=== PATIENT | male | born 1995 | race Caucasian/White ===

== ENCOUNTER 2020-08-03 17:23 | Emergency (ER) | payer OTHER, SELFPAY ==
[2020-08-03] VITALS (12 sets, daily range): BP systolic 99–134; BP diastolic 51–69; PULSE 79–104; RESP 14–22; TEMP 36.6–36.7; O2SAT 98–100; BMI 19.2
--- NOTE | 2020-08-03 17:37 | DI.RAD.S_ITS ---
PROCEDURE: XR CHEST 2V INDICATIONS: Chest pain/SOB TECHNIQUE: 2 views of the chest were acquired. COMPARISON: None. FINDINGS: Surgical changes and devices: None. Lungs and pleura: Lungs are clear. No pleural effusions or pneumothorax. Mediastinum: Mediastinal contours are normal. Heart size is normal. Bones and chest wall: No suspicious bony abnormalities. Soft tissues appear unremarkable. IMPRESSION: No acute cardiopulmonary disease process. Dictated by: Zoe Soler MD, PhD on 08/03/2020 at 17:50 Approved by: Zoe Soler MD, PhD on 08/03/2020 at 17:51
--- NOTE | 2020-08-03 19:36 | ED_ITS ---
HPI - Chest Pain General Chief Complaint: Chest Pain Stated Complaint: SOB,Chest Pain Time Seen by Provider: 08/03/20 17:40 Source: patient Mode of arrival: Ambulatory History of Present Illness HPI narrative: 25-year-old gentleman with a history of ADHD currently on Adderall presents with complaints of central chest pain tightness some pressure that he noted upon awakening this morning. He notes that it got worse during the day but does report that in the last hour he has had decreased symptoms. He describes dyspnea, a sense that is hard to fully expand the middle portion of his chest. He does note that he had poor sleep last night and accidentally took 2 doses of his Adderall yesterday(he did not take a dose this morning). He describes no orthopnea, fevers cough chills, cough, vomiting, diarrhea. He has not had COVID that he is aware and he has not been vaccinated. Related Data Home Medications Medication Instructions Recorded Confirmed dextroamphetamine-amphetamine 20 mg PO DAILY 08/03/20 08/03/20 Allergies Allergy/AdvReac Type Severity Reaction Status Date / Time No Known Drug Allergies Allergy Verified 08/03/20 17:37 Review of Systems Review of Systems Narrative: Remainder of complete review of systems is otherwise unremarkable except for that included in the HPI. Patient History Medical History (Updated 08/04/20 @ 04:55 by Charmaine Mendoza MD) ADHD Family History Other Hemochromatosis tobacco type: vaping alcohol intake frequency: a few times a month Substance Use Type: marijuana Exam Narrative Exam Narrative: General: Healthy appearing, quite thin, in no acute distress. Able to give a complete and coherent history. HEENT: Moist mucous membranes, normal sclera with reactive pupils, Neck: No JVD, supple Respiratory: Lungs are clear to auscultation, no wheezing no rales no rhonchi. Full and symmetrical air movement Cardiac: Regular rate and rhythm no murmurs no bruits Abdomen: Soft, nontender, good bowel tones, no flank pain Skin: Warm and dry, no rashes Neurologic: Grossly neurologically intact with no obvious asymmetries or abnorm alities Extremities: No trauma, well perfused Psych: Cooperative, appropriate insight and affect Initial Vital Signs Initial Vital Signs: Vital Signs Temperature 98.1 F 08/03/20 17:35 Pulse Rate 104 H 08/03/20 17:35 Respiratory Rate 16 08/03/20 17:35 Blood Pressure 134/69 08/03/20 17:35 Pulse Oximetry 98 08/03/20 17:35 Course Orders Ordered: ED Orders 08/03/20 17:27 EKG-12 Lead Stat 08/03/20 17:37 XR chest 2V Stat 08/03/20 18:59 Complete Blood Count AUTO DIFF Stat Comprehensive Metabolic Panel Stat Lipase Stat Magnesium Stat Partial Thromboplastin Time Stat Prothrombin Time INR Stat Troponin & CK Cardiac Panel Stat Vital Signs Vital signs: Vital Signs - 8 hr 08/03/20 21:00 08/03/20 21:30 08/03/20 22:00 Temperature Pulse Rate 96 H 96 H 79 Respiratory Rate 22 14 20 Blood Pressure 109/65 99/58 L 104/57 L Pulse Oximetry 99 100 98 08/03/20 22:30 08/03/20 23:00 08/03/20 23:08 Temperature Pulse Rate 91 H 93 H 93 H Respiratory Rate 18 17 22 Blood Pressure 102/61 119/64 Pulse Oximetry 99 99 08/03/20 23:09 08/03/20 23:15 Temperature 97.9 F Pulse Rate 92 H Respiratory Rate 16 Blood Pressure 107/57 L 107/51 L Pulse Oximetry 99 MDM - Chest Pain Medical Records Data Attestation: I reviewed the patient's medical records. Lab Data Attestation: I reviewed the patient's lab results. Result diagrams: 08/03/20 19:35 08/03/20 19:35 Labs: Lab Results 08/03/20 08/03/20 08/03/20 Range/Units 19:35 19:35 19:35 WBC 10.1 (4.5-11.0) X10^3/uL RBC 4.39 L (4.5-5.9) X10^6/uL Hgb 14.1 (13.5-17.5) g/dL Hct 41.1 (41-53) % MCV 93.5 (80-100) fL MCH 32.1 (26-34) PG MCHC 34.3 (30-36) % RDW 13.1 (11.6-14.8) % Plt Count 250 (150-400) X10^3/uL Neut % (Auto) 69.1 (50-75) % Lymph % (Auto) 18.0 L (25-40) % [place]ette % (Auto) 12.3 (3-14) % Eos % (Auto) 0.2 L (2-4) % Baso % (Auto) 0.4 (0-2) % Neut # (Auto) 7000 (5113-7407) /uL Lymph # (Auto) 1800 (9779-5351) /uL [place] # (Auto) 1300 H (0-900) /uL Eos # (Auto) 0 (0-450) /uL Baso # (Auto) 0 (0-100) /uL PT 15.9 H (10.1-12.7) SECONDS INR 1.4 H (0.9-1.3) APTT 35 (26.4-36.2) SECONDS Sodium 140 (137-145) mmol/L Potassium 3.8 (3.4-5.1) mmol/L Chloride 103 (98-107) mmol/L Carbon Dioxide 28 (22-32) mmol/L BUN 6 L (9-20) mg/dL Creatinine 0.61 L (0.66-1.25) mg/dL Estimated GFR > 60.0 (>60) mL/min BUN/Creatinine Ratio 9.8 (6-22) Glucose 89 (70-100) mg/dL Calcium 9.6 (8.4-10.2) mg/dL Magnesium 2.3 (1.6-2.3) mg/dL Total Bilirubin 2.0 H (0.2-1.3) mg/dL AST 32 (17-59) IU/L ALT 14 (<50) IU/L Alkaline Phosphatase 32 L (38-126) U/L Total Creatine Kinase 307 H (55-170) U/L CK-MB (CK-2) 8.80 H (<2.37) ng/mL CK-MB (CK-2) Rel Index 2.9 (1.5-5.0) % Troponin I < 0.012 (0.01-0.034) ng/mL Total Protein 7.7 (6.3-8.2) g/dL Albumin 4.8 (3.5-5.0) g/dL Globulin 2.9 (1.7-4.1) g/dL Albumin/Globulin Ratio 1.7 (1.0-2.8) Lipase 75 (23-300) U/L Imaging Data Chest x-ray: Radiologist's Impression: FINDINGS: Surgical changes and devices: None. Lungs and pleura: Lungs are clear. No pleural effusions or pneumothorax. Mediastinum: Mediastinal contours are normal. Heart size is normal. Bones and chest wall: No suspicious bony abnormalities. Soft tissues appear unremarkable. IMPRESSION: No acute cardiopulmonary disease process. Dictated by: Zoe Soler MD, PhD on 08/03/2020 at 17:50 ECG Data Attestation: I personally reviewed and interpreted this ECG as follows: Interpretation: Sinus rhythm at a rate of 96 Right atrial enlargement, normal axis ST elevations in multiple leads question pericarditis verses early repolarization MDM Narrative Medical decision making narrative: 25-year-old gentleman with a 12 hour history of central chest pain that seems to be abating over the course of his emergency room visit. No evidence of acute coronary syndrome, pulmonary embolism, spontan eous pneumothorax, pneumonia, asthma, acute coronary syndrome or pericarditis. He does have a minimally elevated bilirubin and does have a family history for hemochromatosis. Will follow-up with his primary physician regarding this. There is no evidence of acute iron overload at this point. All findings are reviewed questions are answered and patient is safe for home discharge Discharge Plan Departure Patient Disposition: Home Clinical Impression: Atypical chest pain, Elevated bilirubin Instructions: DI for Atypical Chest Pain Activity Restrictions/Additional Instructions: Thank you for coming in today Your lab work is very reassuring. Your x-ray is normal. There is no evidence f or pneumonia, collapsed lung, other infection, acute heart attack or heart attack like syndrome or any other life-threatening abnormality that would require hospitalization today. I am reassured that the pain/tightness does seem to be improving over the course of the day. I suspect that he will feel significantly better in the morning. Your bilirubin level was slightly elevated at 2.0. With your family history of hemochromatosis, I would recommend that you follow-up with your primary care ph ysician. At this point there is no evidence of acute iron overload or obvious diagnosis. If symptoms worsen, please feel free to return to the ER for further evaluation Prescriptions: No Action dextroamphetamine-amphetamine 20 mg capsule,extended release 24hr 20 mg PO DAILY RF: 0
[2020-08-03 19:46] LABS: Add Manual Diff / Slide Review NO; Basophils Absolute Auto 0 /uL (0-100); Basophils Percent Auto 0.4 % (0-2); Eosinophils Absolute Auto 0 /uL (0-450); Eosinophils Percent Auto 0.2 % (2-4); Hematocrit 41.1 % (41-53); Hemoglobin 14.1 g/dL (13.5-17.5); Lymphocytes Absolute Auto 1800 /uL (1100-4500); Mean Corpuscular HGB Conc 34.3 % (30-36); Mean Corpuscular Hemoglobin 32.1 PG (26-34); Mean Corpuscular Volume 93.5 fL (80-100); Monocytes Absolute Auto 1300 /uL (0-900); Monocytes Percent Auto 12.3 % (3-14); Neutrophils Absolute Auto 7000 /uL (1500-7000); Neutrophils Percent Auto 69.1 % (50-75); Platelet Count 250 X10^3/uL (150-400); Red Blood Cell Count 4.39 X10^6/uL (4.5-5.9); Red Cell Distribution Width 13.1 % (11.6-14.8); White Blood Cell Count 10.1 X10^3/uL (4.5-11.0)
--- NOTE | 2020-08-03 19:59 | PC.NURSE ---
pain worse with inspiration and deep breath. Patient reports it feels hard to get a deep breath. Reports history of PCP noting a potential cardiac abnormality butterfly beat
[2020-08-03 20:02] LABS: Alanine Aminotransferase 14 IU/L (<50); Albumin 4.8 g/dL (3.5-5.0); Albumin Globulin Ratio 1.7 (1.0-2.8); Alkaline Phosphatase 32 U/L (38-126); Aspartate Aminotransferase 32 IU/L (17-59); BUN Creatinine Ratio 9.8 (6-22); Blood Urea Nitrogen 6 mg/dL (9-20); Calcium 9.6 mg/dL (8.4-10.2); Carbon Dioxide 28 mmol/L (22-32); Chloride 103 mmol/L (98-107); Creatine Kinase 307 U/L (55-170); Estimated Glomerular Filt Rate > 60.0 mL/min (>60); Globulin 2.9 g/dL (1.7-4.1); Glucose 89 mg/dL (70-100); HEMOLYSIS 30 (0-50); Lipase 75 U/L (23-300); Magnesium 2.3 mg/dL (1.6-2.3); Potassium 3.8 mmol/L (3.4-5.1); Sodium 140 mmol/L (137-145); Total Protein 7.7 g/dL (6.3-8.2)
[2020-08-03 20:14] LABS: Troponin I < 0.012 ng/mL (0.01-0.034)
[2020-08-03 20:17] LABS: CKMB % Relative Index 2.9 % (1.5-5.0)
[2020-08-03 20:20] LABS: INR 1.4 (0.9-1.3); Prothrombin Time 15.9 SECONDS (10.1-12.7)
[2020-08-03 20:22] LABS: PTT Partial Thromboplastin Tim 35 SECONDS (26.4-36.2)
== END 2020-08-03 23:16 | disposition home or self-care (01) ==
PROVIDERS: Emergency Provider Emergency Medicine
DX: R07.89 Other chest pain (principal); R06.00 Dyspnea, unspecified; R17 Unspecified jaundice
CPT/HCPCS: 36415; 71046; 80053; 82550; 82553; 83690; 83735; 84484; 85025; 85610; 85730; 93005; 99283; 99284